=== PATIENT | female | born 1955 | race American Indian/Alaskan Native ===

== ENCOUNTER 2016-05-03 07:48 | Emergency (ER) | payer SELFPAY ==
--- NOTE | 2016-05-03 09:52 | Emergency Department Report ---
Chief Complaint: Abdominal Pain Stated Complaint: BACK PAIN/BLOOD IN URINE Time Seen by Provider: 05/03/16 09:51 - HPI History of Present Illness: Patient here reports bilateral flank pain with blood in urine times one month. She also says she is having increased urination and burning with urination. Reports nausea without any vomiting. Reports chills. She says the pain is increasing this morning at 7 out of 10 and it's burning pain. Denies any history of kidney stones. Patient has no medical or surgical history. - ROS Review of Systems: All systems are negative unless stated in HPI above - Exam Vital Signs: Vital Signs 05/03/16 07:52 Temperature 98.8 F Blood Pressure 141/74 O2 Sat by Pulse 100 Oximetry MSE screening note: Focused history and physical exam performed. Due to findings the following was ordered: ED Disposition for MSE Condition: Stable Instructions: Abdominal Pain (ED)
[2016-05-03 10:41] LABS: Alanine Aminotransferase 37 units/L (7-56); Albumin 4.3 g/dL (3.9-5); Albumin/Globulin Ratio 1.1 %; Alkaline Phosphatase 99 units/L (35-129); Anion Gap 19 mmol/L; BUN/Creatinine Ratio 18.33; Bilirubin,Total 0.5 mg/dL (0.1-1.2); Blood Urea Nitrogen 11 mg/dL (7-17); Calcium 9.4 mg/dL (8.4-10.2); Carbon Dioxide 23 mmol/L (22-30); Chloride 100.5 mmol/L (98-107); Glucose 144 mg/dL (65-100); Potassium 3.9 mmol/L (3.6-5.0); Sodium 139 mmol/L (137-145); Total Protein 8.1 g/dL (6.3-8.2)
[2016-05-03 10:48] LABS: Basophils % (Auto) 0.4 % (0.0-1.8); Eosinophils % (Auto) 1.2 % (0.0-4.3); Hematocrit 44.3 % (30.3-42.9); Mean Corpuscular HGB Conc 32 % (30-34); Mean Corpuscular Hemoglobin 26 pg (28-32); Mean Corpuscular Volume 81 fl (79-97); Platelet Count 284 K/mm3 (140-440); Red Blood Count 5.47 M/mm3 (3.65-5.03); Red Cell Distribution Width 15.2 % (13.2-15.2); White Blood Count 6.8 K/mm3 (4.5-11.0)
--- NOTE | 2016-05-03 11:39 | Cat Scan Report ---
CT ABDOMEN AND PELVIS WITHOUT CONTRAST: INDICATION: Flank pain, hematuria. COMPARISON: None similar. FINDINGS: Noncontrast abdomen and pelvis CT performed. LUNG BASES: Minimal scarring. ABDOMEN: Please note that sensitivity to detect small visceral lesions is limited due to the absence of intravenous or oral contrast. Extensive diffuse fatty hepatic infiltration. Right hepatic lobe 18.5 cm in midclavicular length. No radiopaque gallstones or renal calculi. Otherwise, grossly unremarkable unenhanced spleen, pancreas, gallbladder, nonaneurysmal abdominal aorta, IVC and kidneys. Slight diffuse somewhat hypodense adrenal prominence/adenomatous hyperplasia. No ascites or definite size significant adenopathy. Nonopacified GI tract evaluation limited, though grossly nonobstructive. Mild colonic stool/possible constipation. PELVIS: Myomatous uterus with approximately 2.2 cm heterogeneously calcified fibroid anteriorly. Grossly unremarkable non-opacified urinary bladder and the rectosigmoid. No free fluid or definite significant adenopathy. Mild thoracolumbar dextroscoliosis apex about T11. Lower lumbar facet arthropathy and severe L5-S1 disc narrowing with vacuum phenomenon noted. CONCLUSION: 1. No radiopaque renal or gallbladder calculi or evidence of hydronephrosis. 2. Few other incidental findings, including fatty enlarged liver, myomatous uterus and spinal degenerative changes, amongst others, as described. Thank you for the opportunity to participate in this patient's care.
--- NOTE | 2016-05-03 13:37 | Emergency Department Report ---
HPI - General Chief Complaint: Abdominal Pain Time Seen by Provider: 05/03/16 09:52 - HPI HPI: This is a 60-year-old Afro[place] female presents to the emergency department with complaint of bilateral flank pain as well as some vaginal bleeding. All this is gone on for the past month but worsened over the past few weeks. She does not have a primary care doctor or INTELLECTUAL PROPERTY MANAGER. She has tried some over-the- counter pain medication without any relief. She denies any abdominal pain, nausea, vomiting, fever, dysuria or vaginal discharge. She denies any past medical history. No recent travel or sick contacts at home. ED Past Medical Hx - Past Medical History Previous Medical History?: No Hx Pulmonary Embolism: No Hx Asthma: No Hx COPD: No Hx Tuberculosis: No - Surgical History Past Surgical History?: No - Social History Smoking Status: Never Smoker Substance Use Type: None - Medications Home Medications: Home Medications Medication Instructions Recorded Confirmed Last Taken Type Herbal Complex No.218 [Serenagen] 1 tab PO DAILY 10/28/13 10/28/13 10/28/13 History Multivitamin/Iron/Folic Acid 1 tab PO DAILY 10/28/13 10/28/13 10/28/13 History [[employer] Women's Tab] HYDROcodone/APAP 5-325 [[place] 1 each PO Q6HR PRN #14 tablet 05/03/16 Unknown Rx 5/325] Nitrofurantoin [place]/M-Cryst 100 mg PO Q12HR #14 capsule 05/03/16 Unknown Rx [Macrobid CAP] ED Review of Systems ROS: Stated complaint: BACK PAIN/BLOOD IN URINE Other details as noted in HPI Comment: All other systems reviewed and negative Constitutional: denies: chills, fever Eyes: denies: eye pain, eye discharge, vision change ENT: denies: ear pain, throat pain Respiratory: denies: cough, shortness of breath, wheezing Cardiovascular: denies: chest pain, palpitations Gastrointestinal: other (flank pain). denies: nausea, vomiting Genitourinary: other (vaginal bleeding). denies: dysuria, discharge Musculoskeletal: denies: back pain, joint swelling, arthralgia Skin: denies: rash, lesions Neurological: denies: headache, weakness, paresthesias Physical Exam - Physical Exam Vital Signs: Vital Signs 05/03/16 07:52 Temperature 98.8 F Blood Pressure 141/74 O2 Sat by Pulse 100 Oximetry Physical Exam: GENERAL: The patient is well-developed well-nourished. Patient does not appear in any acute distress. HEENT: Normocephalic. Atraumatic. Extraocular motions are intact. Patient has moist mucous membranes. Pupils equal reactive to light bilaterally. NECK: Supple. Trachea is midline. CHEST/LUNGS: Clear to auscultation. There is no respiratory distress noted. HEART/CARDIOVASCULAR: Regular. There is no tachycardia. There is no gallop rub or murmur. ABDOMEN: Abdomen is soft, nontender. No guarding rebound tenderness. Patient has normal bowel sounds. There is no abdominal distention. SKIN: There is no rash. There is no edema. There is no diaphoresis. NEURO: The patient is awake, alert, and oriented. The patient is cooperative. The patient has no focal neurologic deficits. The patient has normal speech and gait. MUSCULOSKELETAL: There is no tenderness or deformity. There is no limitation range of motion. There is no evidence of acute injury. ED Course Vital Signs 05/03/16 07:52 Temperature 98.8 F Blood Pressure 141/74 O2 Sat by Pulse 100 Oximetry ED Medical Decision Making - Lab Data Result diagrams: 05/03/16 10:11 05/03/16 10:11 - Radiology Data Radiology results: report reviewed CT of the abdomen and pelvis without contrast shows no radiopaque renal or gallbladder calculi or evidence of hydronephrosis. Patient has a fibroid uterus with approximate 2.2 cm calcified fibroid anteriorly. No free fluid or significant adenopathy. - Medical Decision Making 60-year-old female presents with 2-4 week history of bilateral flank pain and some vaginal bleeding. Patient's vitals are stable throughout her ED course. Patient's labs are unremarkable other than a urinalysis showing mild bleeding and a mild to moderate urinary tract infection. Patient will be treated with Macrobid. With the patient's complaints, there was concern for kidney stones, and a CT of the abdomen and pelvis without contrast was done. There were no radiopaque renal or gallbladder calculi or any other significant pathology found. Patient be given referrals for [employer]EL[employer]UAL PROPERTY MANAGER and primary care and will be sent home with something for pain. She will return to the emergency department with any worsening of her symptoms or any acute distress. - Differential Diagnosis nephrolithiasis, pyelonephritis, fibroids, UTI, malignancy Critical Care Time: No Critical care attestation.: If time is entered above; I have spent that time in minutes in the direct care of this critically ill patient, excluding procedure time. ED Disposition Clinical Impression: Flank pain, Vaginal bleeding Urinary tract infection Qualifiers: Urinary tract infection type: acute cystitis Hematuria presence: with hematuria Qualified Code(s): N30.01 - Acute cystitis with hematuria Disposition: DISCHARGED TO HOME OR SELFCARE Is pt being admited?: No Does the pt Need Aspirin: No Condition: Stable Instructions: Flank Pain (ED), Uterine Fibroids (ED), Urinary Tract Infection in Women (ED) Additional Instructions: Please follow-up with the primary care and INTEL[employer]UAL PROPERTY MANAGER referrals that you've been given. Return to the emergency department with any worsening of your symptoms or any acute distress. You've been prescribed a medication that is sedating. Therefore this medication cannot be mixed with alcohol, or taken prior to driving, working, or being responsible for children. Prescriptions: Nitrofurantoin [place]/M-Cryst [Macrobid CAP] 100 mg PO Q12HR #14 capsule HYDROcodone/APAP 5-325 [[place] 5/325] 1 each PO Q6HR PRN #14 tablet PRN Reason: Pain Referrals: PRIMARY CARE, [Primary Care Provider] - 3-5 Days SIMONE TOTH MD [Staff Physician] - 3-5 Days [facility] [Outside] - 3-5 Days [facility] [Outside] - 3-5 Days [facility] [Outside] - 3-5 Days Time of Disposition: 14:07
[2016-05-03 13:58] LABS: Bilirubin,Urine NEG (Negative); Blood,Urine MOD (Negative); Ketones,Urine NEG (Negative); Leukocyte Esterase,Urine SM (Negative); Mucus,Urine 1+ /HPF; Nitrite,Urine NEG (Negative); Protein,Urine <15 mg/dL mg/dL (Negative); Urobilinogen,Urine < 2.0 mg/dL (<2.0)
[2016-05-03 14:21] VITALS: BP 161/83
== END 2016-05-03 14:23 | disposition home or self-care (01) ==
LOC: ED 07:48
DX: N30.01 Acute cystitis with hematuria (principal); N93.9 Abnormal uterine and vaginal bleeding, unspecified; R10.9 Unspecified abdominal pain
CPT/HCPCS: 36415; 74176; 80053; 81001; 85025